=== PATIENT | female | born 1950 | race Caucasian/White ===

== ENCOUNTER → 2018-06-09 12:17 | Outpatient (CLI) | payer MEDICARE, SELFPAY ==
--- NOTE | 2018-06-09 13:16 | DI.CT.S_ITS ---
PROCEDURE: CT ABDOMEN PELVIS W CON INDICATIONS: ABDOMINAL PAIN CHANGE IN BOWEL MOVEMENTS. PELVIC PRESSURE TECHNIQUE: After the administration of oral and intravenous contrast, 5 mm thick sections acquired from the diaphragms to the symphysis. 5 mm thick coronal and sagittal reformats were performed. For radiation dose reduction, the following was used: automated exposure control, adjustment of mA and/or kV according to patient size. COMPARISON: None. FINDINGS: Image quality: Excellent. ABDOMEN: Lung bases: Lung bases are clear. Heart size is normal. Solid organs: Liver is normal in size and enhancement. Gallbladder is unremarkable. Biliary system is non-dilated. Pancreas enhances normally. Spleen is normal in size and enhancement. A small splenule is present adjacent to the spleen. No adrenal nodules. Kidneys are normal in size and enhancement, without hydronephrosis. Peritoneum and bowel: There is a small hiatal hernia. Stomach, small bowel, and colon loops are normal in caliber and wall thickness. There is a small gas and debris filled duodenal diverticulum. There are scattered sigmoid diverticula. No evidence for diverticulitis. No free fluid or air. Nodes and vessels: No retroperitoneal or mesenteric adenopathy. Aorta and inferior vena cava are normal in caliber. There are scattered atheromatous calcifications throughout the aorta and iliac arteries bilaterally. Miscellaneous: No ventral hernias. PELVIS: Genitourinary: The bladder is thin walled. 11.9 x 19.3 x 14.4 cm multiloculated cystic masses present within the mid and right hemipelvis. A soft tissue component is present within the posterior central portion of this mass. Calcifications are present along the wall of this cystic mass. The uterus and ovaries are nonvisualized and may be surgically absent. Miscellaneous: No inguinal hernias or adenopathy. There are bilateral iliac chain surgical clips. Bones: No suspicious bony lesions. No vertebral body compression fractures. IMPRESSION: 1. Large cystic and soft tissue mass within the pelvis as described above. It is unclear whether this is of ovarian origin as the patient is likely status post oophrectomy. Additionally, the patient has undergone bilateral iliac chain adalid dissection in the past which may be associated with this finding; however no prior history is available to time of dictation. Differential considerations include both benign and malignant etiologies. Gynecologic oncologic consultation recommended. This is likely the etiology the patient's symptoms. 2. No other acute intra-abdominal findings. No findings to suggest distant metastasis. Dictated by: Jayda Izquierdo M.D. on 06/09/2018 at 16:12 Approved by: Jayda Izquierdo M.D. on 06/09/2018 at 16:25
== END ==
PROVIDERS: PCP Physician Assistant; Visit Provider Physician Assistant
DX: R19.4 Change in bowel habit (principal); R10.9 Unspecified abdominal pain; R19.09 Other intra-abdominal and pelvic swelling, mass and lump
CPT/HCPCS: 74177; Q9967

== ENCOUNTER → 2018-06-15 06:44 | Outpatient (CLI) | payer MEDICARE, SELFPAY ==
[2018-06-15 10:05] LABS: Cancer Antigen 125 790 U/mL (0-35)
[2018-06-22 15:38] LABS: Human HE4 Antigen 536
== END ==
PROVIDERS: PCP Physician Assistant; Visit Provider Obstetrics & Gynecology
DX: R10.2 Pelvic and perineal pain (principal)
CPT/HCPCS: 36415; 86304; 86305

== ENCOUNTER → 2018-06-18 07:13 | Outpatient (CLI) | payer MEDICARE, SELFPAY ==
--- NOTE | 2018-06-18 07:15 | DI.US.S_ITS ---
PROCEDURE: US PELVIC COMPLETE INDICATIONS: PAIN; MASS ON CT TECHNIQUE: Real-time scanning was performed of the pelvic organs, with image documentation. Additional endovaginal scanning was necessary due to incomplete visualization of the adnexal and endometrial structures by transabdominal scanning. COMPARISON: [facility], CT, CT ABDOMEN PELVIS W CON, 06/09/2018, 13:15. FINDINGS: Transabdominal scanning: Limited scanning through the kidneys shows no hydronephrosis. No pathologic free abdominal or pelvic fluid. Endovaginal scanning: Uterus: Prior hysterectomy. Ovaries: Neither normal ovary is identified. Complex, mixed both cystic and solid mass again visualized within the midline of the pelvis which extends into the right adnexa measuring 21.4 x 13.2 x 18.0 cm. Doppler assessment demonstrates internal flow. IMPRESSION: Complex, mixed both cystic and solid pelvic mass as was seen on prior CT scan. Underlying malignancy is suspected and may be ovarian in origin although other pelvic malignancies cannot be excluded. If indicated. Pre and post contrast gynecologic protocol MRI could be performed. Dictated by: Simone ORDONEZ Interpreted: Selene Arnold MD on 06/18/2018 at 8:29 Approved by: Selene Arnold M.D. on 06/18/2018 at 11:54
== END ==
PROVIDERS: PCP Physician Assistant; Visit Provider Obstetrics & Gynecology
DX: R10.2 Pelvic and perineal pain (principal); R19.09 Other intra-abdominal and pelvic swelling, mass and lump
CPT/HCPCS: 76830; 76856

== ENCOUNTER 2018-07-23 06:23 | Day surgery (SDC) | payer MEDICARE, SELFPAY ==
[2018-07-17 11:16] VITALS: BMI 33.2
--- NOTE | 2018-07-23 | DI.RAD.S_ITS ---
PROCEDURE: XR CHEST 1V INDICATIONS: post op port placement TECHNIQUE: One view of the chest was acquired. COMPARISON: [facility], , CHEST 2VW, 03/02/2015, 9:10. FINDINGS: Surgical changes and devices: There has been interval placement of a left-sided central line catheter with the tip overlying the low superior vena cava. Lungs and pleura: No pleural effusions or pneumothorax. Lungs are clear. Mediastinum: Mediastinal contours appear normal. Heart size is normal. Bones and chest wall: No suspicious bony lesions. Overlying soft tissues appear unremarkable. IMPRESSION: New left-sided Port-A-Cath central line. No pneumothorax. Dictated by: Zoltan Uriarte M.D. on 07/23/2018 at 8:33 Approved by: Zoltan Uriarte M.D. on 07/23/2018 at 8:34
[2018-07-23 07:00] VITALS: BP 142/74; PULSE 66; RESP 16; TEMP 36.3; O2SAT 97; BMI 31.9
[2018-07-23] MEDS: LACTATED RINGERS 1,000 ML 42 ML IV (07:20)
--- NOTE | 2018-07-23 07:58 | PM.PREOP ---
Pre-operative Note Interval Note Pre-op Check: Yes History & Physical Reviewed by Physician and Yes Exam Performed Changes: No
[2018-07-23] MEDS: CEFAZOLIN 2 GM/100 ML FROZ.PIGGY IV (08:05)
--- NOTE | 2018-07-23 08:28 | SUR.OPER ---
Supine on padded OR bed, head on pillow, arm padded and tucked at side, legs uncrossed, safety belt at thigh, tape over blanket over lower legs .
[2018-07-23] MEDS: LIDOCAINE 1% 30 ML INJ INJ (08:35)
[2018-07-23] MEDS: HEPARIN 5,000 UNIT, SODIUM CHLORIDE 0.9% 50 ML IV (08:36)
[2018-07-23 09:08] VITALS: BP 135/74; PULSE 62; RESP 12; TEMP 36.1; O2SAT 95
[2018-07-23 09:13] VITALS: BP 144/82; PULSE 69; RESP 12; TEMP 36.1; O2SAT 99
--- NOTE | 2018-07-23 09:17 | PM.OP.1 ---
Operative Date/Time/Diagnoses Date of procedure: 07/23/18 Time of procedure: 09:03 Pre-op diagnosis: Ovarian cancer Post-op diagnosis: same Procedure & Clinicians Procedure: Placement of left subclavian Port-A-Cath Same procedure as scheduled: Yes Indications: Need for IV access for chemotherapy for treatment of ovarian cancer Surgeon: Tommy Jose Click Yes if Unassisted: Yes Anesthesia Type: MAC +/- Operative Notes Findings: Tip in the SVC. No evidence of pneumothorax. Closure Type: primary Specimen(s): none sent Implants & Drains: Standard Port-A-Cath Estimated Blood Loss (mL): 5 Blood products transfused: none Procedure in detail: The patient is placed supine on the operating room table and underwent monitored anesthesia care. She was prepped draped in the usual fashion. A roll it been placed between her shoulder blades. Local anesthetic was infiltrated in a field block fashion beneath the left clavicle. She was placed in Trendelenburg and a transverse incision made paralleling the clavicle. It was carried down the subcu. Needle was inserted on 1st attempt into a vein but the backflow was minimal and I could not pass guidewire. Needle was reinserted and I was able to pass the guidewire without difficulty. Pocket was created inferior to the incision. The Port-A-Cath was put together tapered to appropriate length. The dilator and introducer were passed over the guidewire under fluoroscopy. The dilator and guidewire were removed leaving the introducer in place. The catheter was passed through it and the introducer peeled away. The catheter tip appeared to be in good position. The port was aspirated and flushed with heparinized saline. The port was secured to the chest wall using 2 0 silk. The subcu was closed with interrupted 3 0 Polysorb and skin was closed running for Polysorb subcuticular stitch and Steri-Strips. Dressing was applied and patient was taken recovery area in good condition. Postprocedure chest x-ray showed the tip to be in the SVC and no evidence of pneumothorax Complications: none Condition: stable Disposition: PACU Plan for aftercare: Follow-up with Oncology.
[2018-07-23 09:18] VITALS: BP 151/75; PULSE 60; RESP 14; TEMP 36.1; O2SAT 95
[2018-07-23 09:27] VITALS: BP 149/75; PULSE 59; RESP 15; TEMP 36; O2SAT 99
[2018-07-23] MEDS: HYDROCODONE/ACET 5/325 TABLET 1 TAB PO (09:33)
[2018-07-23 09:46] VITALS: BP 159/77; PULSE 60; RESP 16; TEMP 36.2; O2SAT 100
== END 2018-07-23 09:53 | disposition home or self-care (01) ==
PROVIDERS: PCP Physician Assistant; Visit Provider Specialist
PROC: (CPT 36561; principal; 2018-07-23 07:45)
DX: C56.1 Malignant neoplasm of right ovary (principal); Z45.2 Encounter for adjustment and management of vascular access device; E78.5 Hyperlipidemia, unspecified; I10 Essential (primary) hypertension
CPT/HCPCS: 36561; 71045; 76000; C1788; J0690; J1644; J2250; J2704; J3010

== ENCOUNTER → 2018-11-30 09:45 | Outpatient (CLI) | payer MEDICARE, SELFPAY ==
--- NOTE | 2018-11-30 09:49 | DI.CT.S_ITS ---
PROCEDURE: CT ABDOMEN PELVIS W CON INDICATIONS: Ovarian cancer restaging TECHNIQUE: After the administration of oral and intravenous contrast, 5 mm thick sections acquired from the diaphragms to the symphysis. 5 mm thick coronal and sagittal reformats were performed. For radiation dose reduction, the following was used: automated exposure control, adjustment of mA and/or kV according to patient size. COMPARISON: [facility], CT, CT ABDOMEN PELVIS W CON, 06/09/2018, 13:15. FINDINGS: Image quality: Excellent. ABDOMEN: Lung bases: Lung bases are clear. Heart size is normal. A small hiatal hernia is incidentally noted. Solid organs: Liver is normal in size and enhancement. Gallbladder wall does not appear thickened. Biliary system is non-dilated. Pancreas enhances normally. Spleen is normal in size and enhancement. A calcified granuloma can be seen within the spleen. Incidental note is made of an accessory spleen along the posterior aspect of the primary spleen. No adrenal nodules. Kidneys are normal in size and enhancement, without hydronephrosis. Peritoneum and bowel: Stomach, small bowel, and colon loops are normal in caliber and wall thickness. No free fluid or air. Nodes and vessels: No retroperitoneal or mesenteric adenopathy. Aorta and inferior vena cava are normal in caliber. Miscellaneous: There is a fat-containing nodule hernia seen at the level of the umbilicus. Postoperative change of the anterior abdominal wall can be seen. PELVIS: Genitourinary: Bladder wall thickness is normal. This patient is status post hysterectomy and oophorectomy. No adnexal masses are seen. Miscellaneous: No inguinal hernias or adenopathy. Bones: No suspicious bony lesions. No vertebral body compression fractures. Mild dextroconvex scoliotic curvature is seen. Age-appropriate bony degenerative changes are seen, which is most prominent within the lower lumbar spine IMPRESSION: Status post hysterectomy and oophorectomy. No shamar findings of local recurrence or distant metastatic disease can be seen. Incidental note is made of: Small hiatal hernia Fat-containing ventral wall hernia Diverticulosis is seen, without findings of active diverticulitis. Lower lumbar spine degenerative change Dictated by: Calixto Jones M.D. on 11/30/2018 at 10:40 Approved by: Calixto Jones M.D. on 11/30/2018 at 10:44
== END ==
PROVIDERS: PCP Physician Assistant; Visit Provider Nurse Practitioner Gerontology
DX: C56.1 Malignant neoplasm of right ovary (principal); K44.9 Diaphragmatic hernia without obstruction or gangrene; K43.9 Ventral hernia without obstruction or gangrene; K57.90 Diverticulosis of intestine, part unspecified, without perforation or abscess without bleeding; M47.816 Spondylosis without myelopathy or radiculopathy, lumbar region
CPT/HCPCS: 74177

== ENCOUNTER 2019-07-22 11:43 | Day surgery (SDC) | payer MEDICARE, SELFPAY ==
[2019-07-22] VITALS (8 sets, daily range): BP systolic 109–136; BP diastolic 47–69; PULSE 65–77; RESP 14–16; TEMP 36.2–36.8; O2SAT 92–97; BMI 31.9
--- NOTE | 2019-07-22 12:53 | PM.HP.1 ---
History of Present Illness History of Present Illness Date Patient Seen: 07/22/19 Time Patient Seen: 12:53 Chief complaint: [id number] Narrative: Patient presents for colorectal screening. He had a prior colonoscopy 2016 which was reportedly normal. 2 months ago they had a positive hemocault test. On further history denies any recent gastrointestinal symptoms, no prior peptic ulcer disease. No nausea, vomiting, abdominal pain, loss of appetite, unexplained weight loss, change in bowel habits, diarrhea, constipation, melena, hematochezia, or bright red blood per rectum. Her history is significant for ovarian cancer sp exlap BSO and aortic lymph node dissection. Patient History Medical History (Updated 07/22/19 @ 12:57 by Aaron Savage MD) Cervical cancer (Resolved ~1989) Hernia of abdominal wall (Acute) Hyperlipidemia (Chronic) Hypertension (Chronic) Ovarian cancer (Acute) Surgical History (Updated 07/22/19 @ 12:37 by Lis Thomas RN) H/O exploratory laparotomy (Acute ~06/29/18) History of hysterectomy for cancer (Acute ~1989) History of tonsillectomy and adenoidectomy (Resolved ~1961) S/P appendectomy (Acute) Family History (Updated 07/15/18 @ 15:25 by Tommy Jose MD) Father Hypertension Diabetes mellitus Mother Stroke Sister Cancer Social History household members: spouse Smoking Status: Never smoker substance use type: marijuana Family & Social History Social History: household members family Tobacco & Substance use: Smoking Status Never smoker alcohol intake frequency holiday/special occasion Meds Home Medications and Allergies Home Medications Medication Instructions Recorded Confirmed Type losartan 50 mg-hydrochlorothiazide 1 tab PO DAILY 07/15/18 07/22/19 History 12.5 mg tablet melatonin See Rx Instructions .ROUTE 07/23/18 07/22/19 History .COMPLEX PRN Lactobac. rhamnosus GG-inulin 1 cap PO DAILY 07/22/19 07/22/19 History [Culturelle Probiotics] ibuprofen 400 mg PO Q6H PRN 07/22/19 07/22/19 History Allergies Allergy/AdvReac Type Severity Reaction Status Date / Time atorvastatin AdvReac Intermediate Joint Pain Verified 07/23/18 07:04 Review of Systems Review of Systems ROS Unobtainable: All systems reviewed & are unremarkable except as noted in HPI and below Exam Vital Signs (past 8 hours): General-adult female no acute distress, well nourished HEENT-moist mucous membranes, no scleral icterus Neck-supple with full range of motion, no lymphadenopathy Chest- no labored respirations, clear to auscultation bilaterally Cardiac-regular rate and rhythm Abdomen-soft, nontender, non distended Extremities-no edema, warm well perfused Neurological-alert and oriented x 3. No focal deficits Skin-normal temperature and turgor, no rashes or ulcers Assessment & Plan Assessment and plan (1) Screening for colorectal cancer: Current visit: Yes Status: Acute Assessment & Plan narrative: 69-year-old female with a recent positive fecal occult test last colonoscopy was 2017. Her history is significant for ovarian cancer T2B sp exlap BSO, cytoreductive surgery and aortic lymph node dissection 2018. Screening colonoscopy and esophagoduodenoscopy are indicated to evaluate for source of bleeding. Technical details were discussed. Risks, benefits, alternatives explained. Risks including but not limited to sedation, aspiration, bleeding, pain, missed lesion, incomplete examination, need for further radiographic studies, perforation, need for major abdominal surgery, and all attendant risks major surgery were discussed at length. All questions were answered to their satisfaction, and they voiced understanding.
[2019-07-22] MEDS: FLEETS ENEMA 1 EACH PR (13:10)
[2019-07-22] MEDS: SODIUM CHLORIDE 0.9% 1,000 ML 200 ML IV (13:26)
[2019-07-22] MEDS: LIDOCAINE 4% SOLN 50 ML 20 ML TOP (14:23)
[2019-07-22] MEDS: fentaNYL 250 MCG/5 ML INJ IV (14:24)
[2019-07-22] MEDS: MIDAZOLAM 5 MG/5 ML VIAL IV (14:25)
--- NOTE | 2019-07-22 14:29 | PM.OP.ENDO ---
Operative Date/Time/Diagnoses Date of procedure: 07/22/19 Time of procedure: 14:29 Pre-op diagnosis: 69-year-old female with ovarian cancer and a positive Hemoccult test presents for a screening esophagoduodenoscopy in colonoscopy Post-op diagnosis: other (diverticulosis) Procedure & Clinicians Study performed: esophagoduodenoscy Colonoscopy Same procedure as scheduled: Yes Indications: 69-year-old female with ovarian cancer and a positive Hemoccult test presents for screening esophagoduodenoscopy and colonoscopy Surgeon: Aaron Savage Procedure Notes SCOAP/Timeout: Performed Procedure in detail: The endoscope was inserted into the mouth and advanced carefully into the esophagus and stomach. The stomach was insufflated. The pyloric channel was examined there was no evidence of peptic ulcer disease or gastritis. Acute camera was retroflexed within the stomach and demonstrated no evidence of hiatal hernia. The camera was then withdrawn into the esophagus and the GE junction was observed there was no evidence of Mcneill's or esophagitis. The scope was then carefully withdrawn. A digital rectal exam was performed which demonstrated no masses. The colonoscope was then carefully inserted into the rectum and advanced through the colon. The ileocecal valve was reached. The scope was then carefully withdrawn. The colon was notable only for diverticulosis. The quality of the prep was excellent. There was no evidence of polyps masses or hemorrhage. The scope was carefully retroflexed within the rectum demonstrated grade 1 internal hemorrhoids. Scope withdrawal time: 8 Sedation minutes: 30 Findings: diverticulosis Specimen(s): none sent Complications: none Impression: diverticulosis Post-procedure Recommendations: Colonscopy in 10 years Disposition: same day surgery
== END 2019-07-22 15:45 | disposition home or self-care (01) ==
PROVIDERS: Family Provider Internal Medicine Hematology & Oncology; PCP Physician Assistant; Visit Provider Surgery
PROC: 0DJD8ZZ Inspection of Lower Intestinal Tract, Via Natural or Artificial Opening Endoscopic (ICD-10-PCS; CPT 45378; principal; 2019-07-22 13:00)
PROC: 0DJ08ZZ Inspection of Upper Intestinal Tract, Via Natural or Artificial Opening Endoscopic (ICD-10-PCS; CPT 43235; 2019-07-22 13:00)
DX: R19.5 Other fecal abnormalities (principal); C56.9 Malignant neoplasm of unspecified ovary; E78.5 Hyperlipidemia, unspecified; I10 Essential (primary) hypertension; K57.30 Diverticulosis of large intestine without perforation or abscess without bleeding
CPT/HCPCS: 43235; 45378; 99152; 99153; J2250; J3010

== ENCOUNTER → 2019-08-24 09:22 | Outpatient (CLI) | payer MEDICARE, SELFPAY | PROVIDERS: Family Provider Internal Medicine Hematology & Oncology; PCP Student in an Organized Health Care Education/Training Program; Visit Provider Student in an Organized Health Care Education/Training Program | DX: Z78.0 Asymptomatic menopausal state (principal) | CPT/HCPCS: 77080 ==

== ENCOUNTER → 2020-07-06 19:14 | Outpatient (ROUT) | payer OTHER, MEDICARE, SELFPAY ==
[2020-07-06 19:32] LABS: Add Manual Diff / Slide Review NO; Basophils Absolute Auto 0 /uL (0-100); Basophils Percent Auto 0.4 % (0-2); Eosinophils Absolute Auto 100 /uL (0-450); Hematocrit 38.4 % (36-46); Hemoglobin 12.6 g/dL (12.0-16.0); Lymphocytes Absolute Auto 1200 /uL (1100-4500); Lymphocytes Percent Auto 19.8 % (25-40); Mean Corpuscular HGB Conc 32.7 % (30-36); Mean Corpuscular Hemoglobin 29.4 PG (26-34); Mean Corpuscular Volume 90.1 fL (80-100); Monocytes Absolute Auto 400 /uL (0-900); Monocytes Percent Auto 6.7 % (3-14); Neutrophils Absolute Auto 4300 /uL (1500-7000); Neutrophils Percent Auto 71.1 % (50-75); Platelet Count 156 X10^3/uL (150-400); Red Blood Cell Count 4.26 X10^6/uL (4.0-5.2); Red Cell Distribution Width 14.8 % (11.6-14.8); White Blood Cell Count 6.1 X10^3/uL (4.5-11.0)
[2020-07-06 19:39] LABS: Alanine Aminotransferase 20 IU/L (<35); Albumin 4.1 g/dL (3.5-5.0); Albumin Globulin Ratio 1.6 (1.0-2.8); Alkaline Phosphatase 74 U/L (38-126); Aspartate Aminotransferase 23 IU/L (14-36); BUN Creatinine Ratio 25.8 (6-22); Blood Urea Nitrogen 17 mg/dL (7-17); Calcium 9.4 mg/dL (8.4-10.2); Carbon Dioxide 27 mmol/L (22-32); Chloride 101 mmol/L (98-107); Cholesterol 198 mg/dL (140-199); Estimated Glomerular Filt Rate > 60.0 mL/min (>60); Globulin 2.6 g/dL (1.7-4.1); Glucose 116 mg/dL (80-110); HDL Cholesterol 50 mg/dL (40-60); HEMOLYSIS < 15 (0-50); LDL Cholesterol Calculated 117 mg/dL (<100); Potassium 3.8 mmol/L (3.4-5.1); Sodium 137 mmol/L (137-145); Total Protein 6.7 g/dL (6.3-8.2); Triglycerides 155 mg/dL (35-150)
== END ==
PROVIDERS: Family Provider Internal Medicine Hematology & Oncology; PCP Student in an Organized Health Care Education/Training Program; Visit Provider Student in an Organized Health Care Education/Training Program
DX: E78.2 Mixed hyperlipidemia (principal); I10 Essential (primary) hypertension
CPT/HCPCS: 80053; 80061; 85025

== ENCOUNTER → 2021-01-16 10:07 | Outpatient (CLI) | payer OTHER, MEDICARE, SELFPAY ==
--- NOTE | 2021-01-16 11:19 | DI.CT.S_ITS ---
PROCEDURE: CT CHEST ABD PEL W CON INDICATIONS: ovarian cancer TECHNIQUE: After the administration of oral and intravenous contrast, 5 mm thick sections acquired from the lung apices to the symphysis. 5 mm coronal and sagittal reformats were performed, with additional 7 mm coronal MIP reformats through the lungs. For radiation dose reduction, the following was used: automated exposure control, adjustment of mA and/or kV according to patient size. COMPARISON: [facility], CT, CT ABDOMEN PELVIS W [facility], 06/09/2018, 13:15. [facility], CT, CT ABDOMEN PELVIS W [facility], 11/30/2018, 10:57. FINDINGS: Image quality: Excellent. CHEST: Lungs and pleura: No acute airspace opacities. No pleural effusions or pneumothorax. Central and peripheral airways appear patent and normal in caliber. Mediastinum: Heart size is normal. Mild coronary artery calcification. No pericardial effusion. No mediastinal or hilar adenopathy by size criteria. Thoracic aorta and central pulmonary arteries are normal in size. Esophagus is normal in caliber. No hiatal hernia. Chest wall: No axillary or supraclavicular adenopathy by size criteria. Thyroid gland is normal . ABDOMEN: Solid organs: Liver is normal in size and enhancement. Gallbladder is normal. Biliary system is non dilated. Pancreas enhances normally. Spleen is normal in size and enhancement. There is a calcified nodule in spleen, likely an old granuloma. A 0.8 cm enhancing nodule posterior to the spleen appears unchanged, compatible with a splenule. No adrenal nodules. Kidneys demonstrate normal size and enhancement, without hydronephrosis. Peritoneum and bowel: Bowel loops demonstrate normal wall thickness and caliber. There are colonic diverticulosis. No findings to suggest acute diverticulitis. No free fluid or air. Nodes and vessels: No retroperitoneal or mesenteric adenopathy by size criteria. Aorta and inferior vena cava are normal in size. Miscellaneous: Multiple moderate-sized ventral hernias are present There is a periumbilical ventral hernia containing a short segment of transverse colon. Two inferior abdominal ventral hernias contain segment of small intestine. PELVIS: Genitourinary: Uterus and ovaries are absent. Bladder wall thickness is normal. Miscellaneous: No inguinal hernias. Small inguinal hernias bilaterally are nonspecific. Bones: No suspicious bony lesions. No vertebral body compression fractures. Degenerative changes in thoracic and lumbar spine. IMPRESSION: 1. Hysterectomy and bilateral oophorectomies. No findings to suggest recurrent disease. 2. There are 3 moderate-sized ventral hernias containing segments of colon and small intestine. 3. Diverticulosis without acute diverticulitis. Dictated by: Roman Motta M.D. on 01/16/2021 at 12:02 Approved by: Roman Motta M.D. on 01/17/2021 at 8:29
== END ==
PROVIDERS: Family Provider Internal Medicine Hematology & Oncology; PCP Student in an Organized Health Care Education/Training Program; Referring Provider Internal Medicine Hematology & Oncology; Visit Provider Internal Medicine Hematology & Oncology
DX: C56.1 Malignant neoplasm of right ovary (principal); K57.90 Diverticulosis of intestine, part unspecified, without perforation or abscess without bleeding; K43.9 Ventral hernia without obstruction or gangrene; Z90.710 Acquired absence of both cervix and uterus; Z90.722 Acquired absence of ovaries, bilateral
CPT/HCPCS: 71260; 74177; Q9967

== ENCOUNTER → 2022-11-29 12:58 | Outpatient (CLI) | payer OTHER, MEDICARE, SELFPAY ==
--- NOTE | 2022-11-29 13:01 | DI.RAD.S_ITS ---
PROCEDURE: FL CATHETER PATENCY COMPARISON: [facility], CR, XR KNEE ARTHRITIC SERIES RT, 07/18/2022, 10:02. INDICATIONS: Port without blood return FINDINGS: The left-sided central line port was accessed by IV nurse. Contrast was injected through the port. There is a fibrin sheath covering the tip of the central line port catheter. There is good antegrade flow of contrast without obstruction during contrast injection. IMPRESSION: 1. A fibrin sheath is seen over the tip of the central line catheter. The result was given to Dr. Louis. Dictated by: Roman Motta M.D. on 11/29/2022 at 14:08 Approved by: Roman Motta M.D. on 11/29/2022 at 14:14
== END ==
PROVIDERS: Family Provider Internal Medicine Hematology & Oncology; PCP Student in an Organized Health Care Education/Training Program; Referring Provider Internal Medicine Hematology & Oncology; Visit Provider Internal Medicine Hematology & Oncology
DX: C56.9 Malignant neoplasm of unspecified ovary (principal); T82.898A Other specified complication of vascular prosthetic devices, implants and grafts, initial encounter
CPT/HCPCS: 76000